=== PATIENT | female | born 1965 | race Caucasian/White ===

== ENCOUNTER 2016-09-17 05:47 | Day surgery (SDC) | payer OTHER ==
[~2016-09-17] VITALS: Ht 162.6 cm; Wt 61.1 kg
[~2016-09-17 05:47] MED LIST: BACTDS PO; CETI10CA PO; HYDR-3498 PO
[2016-09-17] MEDS ORDERED: ATOR10TA65 PO (06:53)
[2016-09-17] MEDS ORDERED: muscle relaxant (06:53)
[2016-09-17] MEDS ORDERED: [UNRECOGNIZED DRUG - REMARK] (06:53)
[2016-09-17] MEDS ORDERED: IBUP100O10 PO (06:53)
[2016-09-17 06:57] VITALS: Ht 162.6 cm; Wt 61.1 kg
[2016-09-17 07:00] VITALS: BP 118/59; PULSE 49; RESP 24
[2016-09-17] MEDS ORDERED: FENTAnyl 50 MCG/ML VIAL ONE (07:40)
[2016-09-17] MEDS ORDERED: MIDAZOLAM 1 MG/ML 2 ML INJ ONE (07:41)
[2016-09-17 07:58] VITALS: BP 122/55; PULSE 52; RESP 24
--- NOTE | 2016-09-17 11:53 | GILP ---
DATE OF PROCEDURE: NAME OF PROCEDURE: Esophagogastroduodenoscopy and biopsy. SURGEON: Rodolfo Ramsey MD PREOPERATIVE DIAGNOSIS: Abdominal pain. POSTOPERATIVE DIAGNOSES 1. Gastritis with erosions. 2. Gastric mucosal biopsies were taken for Helicobacter pylori test. INDICATION FOR THE PROCEDURE: Ms. Lynda Mooney is a 51-year-old female patient who had upper abdo mee pain, not responding to therapy. The patient was scheduled for endoscopic examination for fur ther evaluation. The procedure and possible complications are well explained to the patient, she understood and conse nted to the procedure. DESCRIPTION OF PROCEDURE: Under the influence of fentanyl and Versed, the gastroscope was carefully introduced into the esophagus and under direct vision, it was advanced to the stomach and through t he pylorus into the duodenal bulb and descending duodenum. FINDINGS: ESOPHAGUS: The mucosa was normal. STOMACH: The patient had Gastritis with erosions. Gastric mucosal biopsies were taken for Helicobacter pylori test. DUODENUM: Normal. The patient tolerated the procedure very well and there was no complication from the procedure. At the end of the procedure, she was awake with stable vital signs and she was discharged home to the [facility] of her family. IMPRESSION: 1. Gastritis with erosions. 2. Gastric mucosal biopsies were taken for Helicobacter pylori test. PLAN: 1. Omeprazole 40 mg p.o. q.a.m. 2. Await H. pylori test report. Dictated By: RODOLFO VIRGEN/SAUL Conf#: [id number] DID#: [id number]
--- NOTE | 2016-09-18 09:22 | CONS ---
DATE OF ADMISSION: 09/17/2016 DATE OF CONSULTATION: TYPE OF CONSULTATION: Preoperative gastroenterology. Dear Dr. Smith: I thank you very much for this kind referral. HISTORY OF PRESENT ILLNESS: Ms. Lynda Mooney is a 51-year-old female patient who has been referre d to me for further evaluation of upper abdominal pain and chronic heartburn, not responding to ther apy. The patient had positive H. pylori breath test and she has been treated with antibiotics. The re is no past history of peptic ulcer disease. She is not taking any nonsteroidal anti-inflammatory agents. Her appetite has been good and she is not losing any weight. She has history of gallstone s. She denies any history of right upper quadrant pain, fever, chills, or jaundice. There is no hi story of liver disease. The patient is 51 years old and she needs screening colonoscopy. She is no t a hypertensive or diabetic. She does not have any heart disease or lung problem. There is no his tory of kidney disease. She has hyperlipidemia. She is status post surgery for fibroid of the uter us. SOCIAL HISTORY: She is a nonsmoker. She does not abuse alcohol. FAMILY HISTORY: Particular for the history of gastric cancer in her sister as well as grandmother. ALLERGIES: PENICILLIN AND KEFLEX. MEDICATIONS: Lipitor. PHYSICAL EXAMINATION: VITAL SIGNS: She is 5 feet 4 inches tall and she weighs 132 pounds. HEART: Examination of the heart reveals normal first and second heart sounds. LUNGS: Clear. ABDOMEN: Soft. Liver and spleen are not palpable. There are no masses. Normal bowel sounds are h eard. CENTRAL NERVOUS SYSTEM: Does not reveal any focal neurological deficit. IMPRESSION: 1. Upper abdominal pain. 2. Status post antibiotic therapy for Helicobacter pylori. 3. Strong family history of gastric cancer. 4. Chronic heartburn. 5. The patient is 51 years old and she needs screening colonoscopy. 6. History of gallstones. 7. The patient seems to be asymptomatic from gallstones. 8. Hyperlipidemia. 9. Status post surgery for fibroid of the uterus. 10. HISTORY OF ALLERGY TO PENICILLIN AND KEFLEX. PLAN: 1. Endoscopic examination to rule out peptic ulcer disease, erosive esophagitis, and gastric neopla sm. 2. Screening colonoscopy on a different date. The procedures and possible complications are well explained to the patient. She understands and co nsents to the procedures. I thank you once again. With warmest personal regards, Dictated By: ROBYN VIRGEN/NTS Conf#: [id number] DID#: [id number] CC: ROBYN NEFF MD;*EndCC*
== END 2016-09-17 08:28 | disposition home or self-care (01) ==
LOC: GIL 05:47
PROVIDERS: ATTEND Internal Medicine Gastroenterology
DX: K29.60 Other gastritis without bleeding (principal); E78.5 Hyperlipidemia, unspecified; Z88.0 Allergy status to penicillin
CPT/HCPCS: 43239; 87081; J2250; J3010; Z7610

== ENCOUNTER 2016-12-10 07:04 | Day surgery (SDC) | payer OTHER ==
[~2016-12-10] VITALS: Ht 162.6 cm; Wt 59.7 kg
[~2016-12-10 07:04] MED LIST changes: +ATOR10TA65 PO; -BACTDS PO; -CETI10CA PO; +IBUP100O10 PO; +muscle relaxant
[2016-12-10 08:31] VITALS: Ht 162.6 cm; Wt 59.7 kg
[2016-12-10 08:48] VITALS: BP 124/92; PULSE 49; RESP 18
[2016-12-10] MEDS ORDERED: OMEPRAZOLE DAILY (08:56)
[2016-12-10 09:22] VITALS: BP 116/61; PULSE 53; RESP 18
[2016-12-10] MEDS ORDERED: FENTAnyl 50 MCG/ML VIAL ONE (09:25)
[2016-12-10] MEDS ORDERED: MIDAZOLAM 1 MG/ML 2 ML INJ ONE ×2 (09:25)
[2016-12-10 09:50] VITALS: BP 115/61; RESP 20
--- NOTE | 2016-12-10 13:23 | GILP ---
DATE OF PROCEDURE: NAME OF PROCEDURE: Colonoscopy. SURGEON: Robyn Ramsey MD PREOPERATIVE DIAGNOSIS: Screening colonoscopy. POSTOPERATIVE DIAGNOSES: 1. Colonoscopy all the way to the cecum. 2. Poor prep making the exam somewhat suboptimal. 3. Internal hemorrhoids. 4. No gross neoplasm was identified. INDICATION FOR THE PROCEDURE: Ms. Lynda Mooney is a 51-year-old female patient who was scheduled for screening colonoscopy. The procedure and possible complications were well explained to the patient, she understood and cons ented to the procedure. DESCRIPTION OF PROCEDURE: Under the influence of fentanyl and Versed, the colonoscope was carefully introduced in the rectum and under direct vision, it was advanced all the way to the cecum. FINDINGS: The patient had internal hemorrhoids. She had poor prep making the exam somewhat subopti mal. No gross neoplasm was identified. She tolerated the procedure very well and there was no complication from the procedure. At the end of the procedures, she was awake with stable vital signs and she was discharged home to the care of her family. IMPRESSION: 1. Colonoscopy all the way to the cecum. 2. Poor prep making the exam somewhat suboptimal. 3. Internal hemorrhoids. 4. No gross neoplasm was identified. PLAN: Because of the poor prep and suboptimal nature of the examination, would recommend that next screening colonoscopy in 2 to 3 years. Dictated By: ROBYN VIRGEN/SAUL Conf#: [id number] DID#: [id number]
== END 2016-12-10 12:59 | disposition home or self-care (01) ==
LOC: GIL 07:04
PROVIDERS: ATTEND Internal Medicine Gastroenterology
DX: Z12.11 Encounter for screening for malignant neoplasm of colon (principal); K64.8 Other hemorrhoids
CPT/HCPCS: 45378; J2250; J3010; Z7610

== ENCOUNTER 2018-04-01 20:16 | Emergency (ER) | END 2018-04-01 23:28 | disposition home or self-care (01) ==